=== PATIENT | female | born 1965 | race Two or more races ===

== ENCOUNTER → 2024-03-08 | Outpatient (CLI) | payer MEDICAID, SELFPAY ==
--- NOTE | 2024-03-08 13:13 | XR_ITS ---
Examination: Lumbar spine, 5 views Technique: Lumbar spine AP, lateral, coned lateral lower lumbar spine, bilateral obliques 5 views Exam date and time: March 08, 2024 1332 hours INDICATIONS: Lower back pain after injury 2 weeks ago FINDINGS: Lumbar dextroscoliosis 12 degrees Moderate osteopenia Diffuse moderate facet arthropathy No lumbar fracture Mild to moderate lumbar disc narrowing, most prominent at L5-S1 IMPRESSION: [id number] lumbar degenerative disc disease No acute lumbar fracture
== END | disposition home or self-care (01) ==
LOC: CDIM 13:05
PROVIDERS: PCP Nurse Practitioner Family; Referring Provider Nurse Practitioner Family; Visit Provider Nurse Practitioner Family
DX: M51.369 Other intervertebral disc degeneration, lumbar region without mention of lumbar back pain or lower extremity pain (principal)
CPT/HCPCS: 72110